=== PATIENT | female | born 1965 | race African-American/Black ===

== ENCOUNTER 2020-01-10 18:26 | Emergency (ER) | payer OTHER ==
[~2020-01-10] VITALS: Ht 157.5 cm; Wt 87.7 kg
[~2020-01-10 18:26] MED LIST: ACYC400T PO; ALPR2TAB2 PO; BACL10TA PO; ESTR1TAB17 PO; FOLI1TAB15 PO; HYDR200T4 PO; LEFL10TA15 PO; OMEP20 PO; TRAZ-257 PO; VICODIN
[2020-01-10] MEDS ORDERED: LOSA25TA21 PO (18:42)
[2020-01-10] MEDS ORDERED: BELI120V IV (18:42)
[2020-01-10] MEDS ORDERED: ALPR0.255 PO (18:49)
[2020-01-10] MEDS ORDERED: FOLI-130 PO (18:49)
[2020-01-10] MEDS ORDERED: KETOROLAC TROMETHAMINE 30 MG/ML VIAL IM ONE (19:00)
[2020-01-10 19:42] VITALS: BP 142/78
== END 2020-01-10 19:50 | disposition home or self-care (01) ==
LOC: EMS 18:27
DX: S13.4XXA Sprain of ligaments of cervical spine, initial encounter (principal); M54.6 Pain in thoracic spine; R07.89 Other chest pain; K21.9 Gastro-esophageal reflux disease without esophagitis; G43.909 Migraine, unspecified, not intractable, without status migrainosus; G89.29 Other chronic pain; V49.9XXA Car occupant (driver) (passenger) injured in unspecified traffic accident, initial encounter; Y93.89 Activity, other specified; Y92.89 Other specified places as the place of occurrence of the external cause; Y99.8 Other external cause status
CPT/HCPCS: 71045; 72040; 96372; 99284; J1885